=== PATIENT | female | born 1990 | race Two or more races ===

== ENCOUNTER 2024-02-13 12:39 | Emergency (ER) | payer OTHER ==
[~2024-02-13] VITALS: Ht 160 cm; Wt 64.9 kg
[2024-02-13] MEDS ORDERED: ORPHENADRINE CITRATE 30 MG/ML AMPUL IM ONE (16:45)
[2024-02-13] MEDS ORDERED: KETOROLAC TROMETHAMINE 30 MG VIAL IM ONE (16:45)
== END 2024-02-13 18:11 | disposition home or self-care (01) ==
LOC: ER 12:40
DX: M62.838 Other muscle spasm (principal); Z88.0 Allergy status to penicillin
CPT/HCPCS: 72040; 73030; 96372; 99283; J1885; J2360

== ENCOUNTER 2024-11-15 09:08 | Day surgery (SDC) | payer OTHER ==
[2024-11-14 13:19] VITALS: BP 133/84
[2024-11-14 13:30] LABS: HEMATOCRIT 36.6 % (36.0-45.00); HEMOGLOBIN 12.8 g/dL (12.0-15.00); MEAN CELL VOLUME 91.5 fL (80.00-100.00); MEAN CORPUSCULAR HEMOGLOBIN 32.1 pg (27.00-32.0); MEAN CORPUSCULAR HGB CONC 35.1 g/dl (32.0-36.0); PLATELET COUNT 260 K/uL (150-450); RED CELL DISTRIBUTION WIDTH 12.7 % (11.5-14.5)
[2024-11-14 13:42] LABS: INR 1.15; PARTIAL THROMBOPLASTIN TIME 27.9 SECONDS (22.0-34.0); PROTHROMBIN TIME 12.4 SECONDS (9.0-11.5)
[2024-11-14 13:48] LABS: BILIRUBIN TOTAL 0.66 mg/dL (0.3-1.2); CALCIUM 9.2 mg/dL (8.5-10.1); CREATININE SERUM 0.9 mg/dL (0.55-1.02); GFR 71.25; GLOBULINA 3.4 G/DL (2.4-3.5); POTASSIUM 3.98 mEq/L (3.5-5.1); TOTAL PROTEIN 7.4 gm/dL (6.4-8.2)
[~2024-11-15] VITALS: Ht 160 cm; Wt 66.2 kg
[2024-11-15] MEDS ORDERED: CHLORHEXIDINE GLUCONATE 120 ML BOTTLE TOP ONE (14:15)
[2024-11-15] MEDS ORDERED: POVIDONE-IODINE 118 ML BOTT TOP ONE (14:15)
== END 2024-11-15 19:20 | disposition home or self-care (01) ==
LOC: CIR.AMB 09:08
PROVIDERS: ATTEND Obstetrics & Gynecology
DX: D06.9 Carcinoma in situ of cervix, unspecified (principal); Z88.0 Allergy status to penicillin